=== PATIENT | female | born 1940 | race Hispanic/Latino ===

== ENCOUNTER 2020-07-31 23:01 | Emergency (ER) | payer MEDICARE ==
[2020-07-31 23:36] LABS: BASOPHILS % (AUTO) 0.7 % (0.0-5.0); EOSINOPHILS % (AUTO) 1.5 % (0.0-8.0); HEMATOCRIT 39.3 % (36-48); LYMPHOCYTES % (AUTO) 23.2 % (21.0-51.0); MEAN CORPUSCULAR HGB CONC 32.6 g/dL (32.0-36.0); MEAN CORPUSCULAR VOLUME 98.3 fL (79-99); MONOCYTES % (AUTO) 6.4 % (3.0-13.0); NEUTROPHILS % (AUTO) 67.8 % (40.0-77.0); PLATELET COUNT (AUTO) 148 K/uL (130-400); RED CELL DISTRIBUTION WIDTH 12.8 % (11.0-15.5); WHITE BLOOD COUNT (AUTO) 6.7 K/uL (4.8-10.8)
[2020-07-31 23:44] LABS: CREATININE 0.5 mg/dL (0.5-1.5); POTASSIUM 3.5 mmol/L (3.5-5.1)
[2020-07-31 23:46] VITALS: BP 140/82
[2020-07-31 23:48] LABS: ALBUMIN 3.2 g/dL (3.5-5.0); TOTAL PROTEIN, SERUM 6.7 g/dL (6.0-8.3)
[2020-08-01] MEDS ORDERED: FAMOTIDINE 20MG VIAL IV ONE
[2020-08-01] MEDS ORDERED: ONDANSETRON 4MG INJ IVP ONE
[2020-08-01] MEDS ORDERED: ONDANSETRON ODT 4MG TAB ONE (00:08)
[2020-08-01] MEDS ORDERED: FAMOTIDINE 20MG TAB ONE (00:08)
[2020-08-01 01:09] LABS: APPEARANCE,URINE Clear (CLEAR); BILIRUBIN,URINE Negative (NEGATIVE); COLOR,URINE Yellow (YELLOW); GLUCOSE, URINE (UA) >=1000 mg/dL (NEGATIVE); KETONES,URINE Negative (NEGATIVE); LEUKOCYTE ESTERASE ,URINE Negative (NEGATIVE); NITRATE,URINE Negative (NEGATIVE); OCCULT BLOOD,URINE Negative (NEGATIVE); PROTEIN,URINE Negative (NEGATIVE); UROBILINOGEN,URINE 0.2 mg/dL (0.2-1.0)
[2020-08-01 01:17] LABS: BACTERIA,URINE None Seen /HPF (None Seen); RBC,URINE 0-1 /HPF (0-1); SQUAMOUS EPITHELIAL CELL,UR Few /HPF (0-2); WBC,URINE 0-1 /HPF (0-1); YEAST,URINE BUDDING Rare /HPF (None Seen)
[2020-08-01] MEDS ORDERED: FAMO-136 PO (02:07)
[2020-08-01] MEDS ORDERED: L.AC1CAP6 PO (02:07)
[2020-08-01] MEDS ORDERED: ONDA4TAB10 PO (02:07)
== END 2020-08-01 02:17 | disposition home or self-care (01) ==
LOC: EDH 23:28
DX: K52.9 Noninfective gastroenteritis and colitis, unspecified (principal); R11.2 Nausea with vomiting, unspecified; E11.9 Type 2 diabetes mellitus without complications
CPT/HCPCS: 36415; 80053; 81001; 83690; 85025; 96374; 96375